=== PATIENT | male | born 1995 | race Caucasian/White ===

== ENCOUNTER 2018-12-11 17:58 | Emergency (ER) | payer SELFPAY ==
[~2018-12-11] VITALS: Ht 190.5 cm; Wt 74.8 kg
[2018-12-11 18:03] VITALS: BP 141/81
[2018-12-11] MEDS ORDERED: PHEN-563 PO (18:09)
[2018-12-11] MEDS ORDERED: CHLO25CA22 PO (18:09)
[2018-12-11] MEDS ORDERED: BUPR1FIL3 SL (18:09)
[2018-12-11] MEDS ORDERED: IBUPROFEN 600 MG TABLET PO ONE ×2 (18:30→18:43)
--- NOTE | 2018-12-11 18:45 | NUR ---
MOTRIN 600 MG PO X 1 GIVE
--- NOTE | 2018-12-11 18:46 | NUR ---
MOTRIN 600 MG PO X 1 GIVE ORDERED
== END 2018-12-11 20:01 | disposition home or self-care (01) ==
LOC: ER 18:01
DX: S62.366A Nondisplaced fracture of neck of fifth metacarpal bone, right hand, initial encounter for closed fracture (principal); F19.10 Other psychoactive substance abuse, uncomplicated; W22.01XA Walked into wall, initial encounter; Y93.89 Activity, other specified; Y92.89 Other specified places as the place of occurrence of the external cause; Y99.8 Other external cause status
CPT/HCPCS: 29125; 73130; 99283; A4606; Z7610